=== PATIENT | male | born 1985 | race Caucasian/White ===

== ENCOUNTER 2017-05-21 20:49 | Emergency (ER) | payer SELFPAY ==
[~2017-05-21] VITALS: Ht 180.3 cm; Wt 81.6 kg
[2017-05-21 20:52] VITALS: BP 163/83
== END 2017-05-21 21:18 | disposition home or self-care (01) ==
LOC: ER 20:52
DX: J03.90 Acute tonsillitis, unspecified (principal); H66.92 Otitis media, unspecified, left ear; J45.909 Unspecified asthma, uncomplicated; F17.200 Nicotine dependence, unspecified, uncomplicated
CPT/HCPCS: A4606; Z7610

== ENCOUNTER 2018-06-08 05:32 | Emergency (ER) | payer MEDICAID, OTHER ==
[~2018-06-08] VITALS: Ht 180.3 cm; Wt 86.2 kg
[2018-06-08] VITALS (33 sets, daily range): BP systolic 89–160; BP diastolic 49–109
--- NOTE | 2018-06-08 05:32 | NUR ---
BIB RA TO BED 11 C/C OF ALOC. SECONDARY TO WITNESSED SEIZURE LIKE ACTIVITIY FROM HOME. PT AA/OX0, AROUSABLE TO PAIN STIMULI, RESTLESS, UNCOOPERATIVE WITH HEAVY ETOH SMELL. FATHER STATES, "HE DRANK ALCOHOL AND SMOKED MARIJUANA." SKIN PINK, WARM, DIAPHORETIC. PUPILS DIALATED AND REACTIVE. NO ORAL TRAUMA NOTED. POSITIVE URINARY INCONTINENCE. NO OBVIOUS HEAD TRAUMA NOTED. NO GAG REFLEX NOTED. BILATERAL LOWER EXTREMITY ABRASIONS NOTED. WILL CONTINUE TO MONITOR. PLACED PT ON COUPLES THERAPIST, CONTINUOUS PULSE OX, O2 15LPM VIA NRB. PLACED PT ON SEIZURE PRECAUTIONS WITH PADDED SIDE RAILS.
--- NOTE | 2018-06-08 05:44 | NUR ---
PT INTUBATED WITH ET-TUBE 7.5, 24CM AT THE LIP LINE, (+) COLOR CHANGE ON THE CO2 DETECTOR, BILATERAL EQUAL BREATH SOUNDS ON AUSCULTATION. WILL CONTINUE TO MONITOR PT CLSOELY.
--- NOTE | 2018-06-08 05:44 | NUR ---
PT REC'D ON NRB MASK 15LPM. PT SHOWED SIGNS OF TACHYCARDIA, TACHYPNEA, AND RESPIRATORY DISTRESS. PT ORALLY INTUBATED VIA ETT #7.5 SECURED AT 24CM @ THE LIP PER DR GILLIS REQUEST. CONFIRMED CO2 COLOR CHANGE AND BILATERAL BREATH SOUNDS POST INTUBATION. PT PLACED ON [facility] VENT VIA AC MODE ON SETTINGS CHARTED. BELT LOOP MACHINE OPERATOR CUFF PRESSURE NOTED. ALARMS ARE SET AND AUDIBLE. AMBU BAG BEDSIDE. VENT PLUGGED INTO RED OUTLET. WAITING ON CHEST X RAY RESULTS. WILL CONTINUE TO MONITOR Addendum: 06/08/18 at 0616 by KARAN MURRY RT Amended: Links added.
[2018-06-08] MEDS ORDERED: PROPOFOL 100 ML ONE (05:47)
--- NOTE | 2018-06-08 05:49 | NUR ---
RT PLACE PT ON VENT. VENT SETTINGS AC- 16, TV-500, FIO2-50%, PEEP-5.
[2018-06-08] MEDS ORDERED: IV NS 0.9% 1,000 ML BAG IV ONE (06:00)
[2018-06-08] MEDS ORDERED: LEVETIRACETAM (500MG) 1,000 MG in IV NS 0.9% 100 ML IV ONE (06:00)
[2018-06-08 06:14] LABS: BASOPHILS % (AUTO) 0.2 % (0.0-2.0); EOSINOPHILS % (AUTO) 0.4 % (0.0-6.0); HEMATOCRIT 55 % (39-51); HEMOGLOBIN 16.9 g/dL (13.5-17.5); LYMPHOCYTES # (AUTO) 8.6 /CMM (0.8-4.8); LYMPHOCYTES % (AUTO) 41.3 % (20.0-44.0); MEAN CORPUSCULAR HEMOGLOBIN 31 PG (26.0-33.0); MEAN CORPUSCULAR HGB CONC 31 g/dl (31.0-36.0); MEAN CORPUSCULAR VOLUME 101 fL (80-96); MONOCYTES % (AUTO) 4.7 % (2.0-12.0); NEUTROPHILS # (AUTO) 11.1 /CMM (1.8-8.9); NEUTROPHILS % (AUTO) 53.4 % (43.0-81.0); PLATELET COUNT (AUTO) 382 /CMM (150-450); RDW COEFFICIENT OF VARIATION 14.1 (11.5-15.0); RED BLOOD CELL COUNT(AUTO) 5.43 MIL/uL (4.5-6.0); WHITE BLOOD COUNT (AUTO) 20.9 K/uL (4.3-11.0)
--- NOTE | 2018-06-08 06:19 | NUR ---
PT TRANSPORTED TO RADIOLOGY FOR CT HEAD VIA ACLS PROTOCOL.
[2018-06-08 06:22] LABS: APPEARANCE,URINE SL CLOUDY (CLEAR); BILIRUBIN,URINE NEGATIVE (NEGATIVE); BLOOD, URINE 2+ Ery/uL (NEGATIVE); COLOR,URINE YELLOW (YELLOW); KETONES,URINE NEGATIVE (NEGATIVE); LEUKOCYTE ESTERASE ,URINE NEGATIVE (NEGATIVE); NITRITE, URINE NEGATIVE (NEGATIVE); PH,URINE 5.5 (5.0-8.0); PROTEIN,URINE 2+ mg/dl (NEGATIVE); UGLUCOSE NEGATIVE (NEGATIVE); UROBILINOGEN,URINE 0.2 EU/dL (0.2)
[2018-06-08 06:25] LABS: INR 0.94 (0.87-1.13)
[2018-06-08 06:28] LABS: BACTERIA,URINE Rare /HPF (None Seen); RBC,URINE 0-2 /HPF (0-2); SQUAMOUS EPITHELIAL CELL,UR Rare /HPF (None Seen); WBC,URINE 0-2 /HPF (0-3)
[2018-06-08] MEDS ORDERED: ROCURONIUM BROMIDE 50 MG/5 ML IV ONE (06:30)
[2018-06-08] MEDS ORDERED: ETOMIDATE 2 MG/ML VIAL IV ONE ×2 (06:30→10:41)
[2018-06-08 06:31] LABS: ALBUMIN 4.8 g/dL (3.4-5.0); BILIRUBIN,DIRECT 0.1 mg/dL (0.0-0.2); BILIRUBIN,TOTAL 0.3 mg/dL (0.2-1.0); CALCIUM, SERUM 9.6 mg/dL (8.5-10.1); CREATININE 1.4 mg/dL (0.6-1.3); POTASSIUM 3.9 mmol/L (3.5-5.1); TOTAL PROTEIN, SERUM 8.6 g/dL (6.4-8.2)
--- NOTE | 2018-06-08 06:31 | NUR ---
PT BACK FROM RADIOLOGY. PENDING CT HEAD RESULT.
[2018-06-08] MEDS ORDERED: LEVETIRACETAM (500MG) 500 MG/5 ML VIAL IV ONE (06:33)
--- NOTE | 2018-06-08 06:37 | NUR ---
ADVANCED ET TUBE [address] GILLIS REQUEST. TUBE SECURED AT 27CM @ THE LIP Addendum: 06/08/18 at 0650 by KARAN MURRY RT Amended: Links added.
[2018-06-08] MEDS ORDERED: NICARDIPINE IN DEXTROSE,ISO-OS 200 ML IV ONE (06:38)
--- NOTE | 2018-06-08 06:43 | NUR ---
NKECHI PATINO TALKING TO RADIOLOGIST REGARIDNG CT RESULT.
[2018-06-08] MEDS: PROPOFOL 100 ML IV PRN ×4 (06:46→10:31)
[2018-06-08 06:49] LABS: SALICYLATE 4.3 mg/dL (2.8-20.0)
--- NOTE | 2018-06-08 06:53 | NUR ---
DR. CACERES TALKING TO DR. EDMOND REGARDING CT RESULT.
[2018-06-08] MEDS ORDERED: PANTOPRAZOLE 40 MG VIAL IV ONE (07:00)
[2018-06-08] MEDS ORDERED: CEFTRIAXONE 1GM BAG (ER ONLY) 50 ML IV ONE (07:00)
[2018-06-08] MEDS ORDERED: NICARDIPINE IN NACL, ISO-OSM 20 MG/200 ML PIGGYBACK IV ONE (07:00)
[2018-06-08] MEDS ORDERED: IV LR 1000 ML 1,000 ML IV ONE (07:00)
[2018-06-08] MEDS ORDERED: CEFTRIAXONE 1 G VIAL ONE (07:08)
[2018-06-08] MEDS ORDERED: PANTOPRAZOLE 40 MG VIAL ONE (07:08)
--- NOTE | 2018-06-08 07:21 | NUR ---
RT PT RECEIVED ON [facility] VENT W 7.5 ETT SECURED @ 27' AT THE LIP. VENT SET W NOTED SETTINGS. ALARMS ARE ON AND AUDIBLE W AMBUBAG @ HOB AND PLUGGED INTO RED OUTLET. NO RESP DISTRESS NOTED. SMALL AMOUNT OF CLEAR THIN SECRETIONS OBSERVED. TEAM ASSEMBLER CUFF PRESSURE NOTED. WILL CONTINUE OT MONITOR. Addendum: 06/08/18 at 1141 by ABDIEL MEAD RT Amended: Links added.
[2018-06-08 07:22] LABS: ABG BASE EXCESS -16.9 mmol/L; ABG OXYGEN SATURATION 98.8 % (92.0-98.5); ABG PCO2 38.1 mmHg (35.0-45.0); ABG PH 7.111 (7.350-7.450); ABG PO2 279.4 mmHg (75.0-100.0); AaDO2 34.2 mmHg; COHb 0.7 % (0.5-1.5); MetHb 0.8 % (0.0-1.5); O2Hb 97.3 % (94.0-97.0); PEEP,BG 5 cm H2O; SITE, ABG Right Radial; VT, ABG 500 mL
[2018-06-08] MEDS ORDERED: LORAZEPAM INJ 2 MG/ML VIAL ONE (07:28)
[2018-06-08] MEDS ORDERED: LORAZEPAM INJ 2 MG/ML VIAL IV ONE (07:30)
--- NOTE | 2018-06-08 07:33 | NUR ---
ENDORSED TO ONCOMING SHIFT EDGAR CASTRO.
--- NOTE | 2018-06-08 07:48 | NUR ---
REPORT GIVEN TO FERMENTING CELLARS SUPERVISOREDGAR HANSEN
[2018-06-08] MEDS ORDERED: FENTANYL PF 100MCG/2ML AMPUL IV STA (08:00)
[2018-06-08] MEDS ORDERED: MIDAZOLAM HCL 2 MG/2ML VIAL IV ONE (08:00)
[2018-06-08] MEDS ORDERED: FENTANYL PF 100MCG/2ML AMPUL ONE (08:01)
[2018-06-08] MEDS ORDERED: MIDAZOLAM HCL 2 MG/2ML VIAL ONE (08:01)
[2018-06-08] MEDS ORDERED: IV NS 0.9% 1,000 ML IV PRN ×3 (08:44→09:00)
[2018-06-08] MEDS ORDERED: HYDROCODONE/APAP 5/325MG 1 EACH TABLET PO PRN (09:00)
[2018-06-08] MEDS ORDERED: MAG HYDROX/AL HYDROX/SIMETH 30 ML UDC PO PRN (09:00)
[2018-06-08] MEDS ORDERED: MAGNESIUM HYDROXIDE 30 ML UDC PO PRN (09:00)
[2018-06-08] MEDS ORDERED: ONDANSETRON HCL/PF 4 MG/2 ML VIAL IVP PRN (09:00)
[2018-06-08] MEDS ORDERED: Z GUARD REMEDY 2 OZ OINT TP PRN (09:00)
[2018-06-08] MEDS ORDERED: PANTOPRAZOLE 40 MG VIAL IV SCH (09:00)
--- NOTE | 2018-06-08 09:20 | NUR ---
RT NOTE RECEIVED PT INTUBATED VIA 7.5 ETT 27 CM AT LIP. TUBE SECURE, CUFF INFLATED. SETTINGS FOLLOW AC 16 550 40% +5. ALARMS SET PER PROTOCOL AND AUDIBLE. BILATERAL CHEST RISE NOTED. CLEAR BREATH SOUNDS HEARD UPON AUSCULTATION. VENT PLUGGED IN TO RED OUTLET. AMBU BAG AT BED SIDE. NO DISTRESS NOTED. Addendum: 06/08/18 at 0922 by KERWIN ARMSTRONG RT Amended: Links added.
[2018-06-08] MEDS ORDERED: FEE PK DOSING 1 MIN EA MC ONE (09:26)
[2018-06-08 09:28] LABS: OSMOLALITY,SERUM 302 mOS/kg (278-305); OSMOLALITY,URINE 466 mOS/kg (340-1090)
[2018-06-08] MEDS ORDERED: LEVETIRACETAM (500MG) 500 MG in IV NS 0.9% 100 ML IV SCH (09:30)
[2018-06-08] MEDS: VANCOMYCIN 1 GM in IV D5W 250 ML IV SCH ×2 (09:40→17:28)
--- NOTE | 2018-06-08 10:14 | NUR ---
received pt from ER, s/p drub overdose, sedated on Diprivan at 90mcg, SR, intubated on the vent, lungs clear, no edema, NPO, f/c good output, v/s stable, no pain, family at the bedside.
[2018-06-08 10:24] LABS: ABG BASE EXCESS -4.9 mmol/L; ABG OXYGEN SATURATION 98.3 % (92.0-98.5); ABG PCO2 41.4 mmHg (35.0-45.0); ABG PH 7.321 (7.350-7.450); ABG PO2 163.5 mmHg (75.0-100.0); AaDO2 74.1 mmHg; COHb 0.5 % (0.5-1.5); MetHb 0.8 % (0.0-1.5); PEEP,BG 5 cm H2O; SITE, ABG Right Radial; VENT MODE, BG AC 16 550 40% +5; VT, ABG 550 mL
[2018-06-08] MEDS ORDERED: Sodium Bicarbonate 150 MEQ in IV D5W 1,000 ML IV PRN (10:30)
[2018-06-08 10:41] LABS: BASOPHILS # (AUTO) 0.1 /CMM (0.0-0.2); BASOPHILS % (AUTO) 0.4 % (0.0-2.0); HEMATOCRIT 44 % (39-51); HEMOGLOBIN 14.4 g/dL (13.5-17.5); LYMPHOCYTES # (AUTO) 1.8 /CMM (0.8-4.8); LYMPHOCYTES % (AUTO) 7.5 % (20.0-44.0); MEAN CORPUSCULAR HEMOGLOBIN 31 PG (26.0-33.0); MEAN CORPUSCULAR HGB CONC 33 g/dl (31.0-36.0); MEAN CORPUSCULAR VOLUME 96 fL (80-96); MONOCYTES # (AUTO) 1.5 /CMM (0.1-1.30); MONOCYTES % (AUTO) 6.4 % (2.0-12.0); NEUTROPHILS # (AUTO) 20.1 /CMM (1.8-8.9); NEUTROPHILS % (AUTO) 85.7 % (43.0-81.0); PLATELET COUNT (AUTO) 270 /CMM (150-450); RDW COEFFICIENT OF VARIATION 13.7 (11.5-15.0); RED BLOOD CELL COUNT(AUTO) 4.61 MIL/uL (4.5-6.0); WHITE BLOOD COUNT (AUTO) 23.5 K/uL (4.3-11.0)
[2018-06-08] MEDS ORDERED: FEE EMEERGENCY 1 MIN EA MC ONE (10:41)
[2018-06-08 10:54] LABS: ALBUMIN 3.4 g/dL (3.4-5.0); BILIRUBIN,DIRECT 0.1 mg/dL (0.0-0.2); BILIRUBIN,TOTAL 0.5 mg/dL (0.2-1.0); PHOSPHORUS 2.5 mg/dL (2.5-4.9); TOTAL PROTEIN, SERUM 6.1 g/dL (6.4-8.2)
[2018-06-08] MEDS: PIPERACILLIN /TAZOBACTAM 3.375 G in IV D5W 50 ML IV SCH ×2 (11:24→17:00)
[2018-06-08 11:33] LABS: BAND % (MANUAL) 4 % (0.0-5.0); LYMPHOCYTES % (MANUAL) 8 % (16-48); MONOCYTES % (MANUAL) 3 % (0-11.0); MYELOCYTES % 2 % (0-0); NEUTROPHILS % (MANUAL) 83 (42-76)
--- NOTE | 2018-06-08 12:00 | NUR ---
pt is resting in the bed, sedated on diprivan at 50mcg, SR, receiving bicarb drip, v/s stable, no pain, pt turned and repositioned q2hrs.
[2018-06-08 12:17] LABS: APPEARANCE,URINE CLEAR (CLEAR); BILIRUBIN,URINE NEGATIVE (NEGATIVE); BLOOD, URINE 3+ Ery/uL (NEGATIVE); COLOR,URINE YELLOW (YELLOW); KETONES,URINE NEGATIVE (NEGATIVE); LEUKOCYTE ESTERASE ,URINE NEGATIVE (NEGATIVE); NITRITE, URINE NEGATIVE (NEGATIVE); PH,URINE 5.5 (5.0-8.0); PROTEIN,URINE 3+ mg/dl (NEGATIVE); UGLUCOSE 1+ mg/dL (NEGATIVE); UROBILINOGEN,URINE 0.2 EU/dL (0.2)
[2018-06-08 12:27] LABS: CREATININE, URINE 15.6 MG/DL (30.0-125.0); URINE TOTAL PROTEIN 151.9 mg/dL (0-11.9)
[2018-06-08 12:41] LABS: CALCIUM, SERUM 7.8 mg/dL (8.5-10.1); CREATININE 1.5 mg/dL (0.6-1.3); POTASSIUM 4.1 mmol/L (3.5-5.1)
[2018-06-08] MEDS ORDERED: DC PROPOFOL WHEN EXTUBATED XX PRN (12:55)
[2018-06-08 13:00] LABS: BACTERIA,URINE Few /HPF (None Seen); SQUAMOUS EPITHELIAL CELL,UR Rare /HPF (None Seen); WBC,URINE 0-2 /HPF (0-3)
--- NOTE | 2018-06-08 13:00 | NUR ---
pt got extubated per Dr Aguilar Alert, follows commands, recognizes his family members, on 3L 02 sat 100%, v/s stable, no pain.
[2018-06-08 13:07] LABS: EOSINOPHIL,URINE None Seen
--- NOTE | 2018-06-08 13:07 | NUR ---
RT NOTE PT EXTUBATED PER MD ORDER. PT AWAKE AND ALERT. NO DISTRESS NOTED. PLACED ON NC @ 3L WITH HUMIDIFIER. AMBU BAG AT BED SIDE. RN AT BED SIDE. FAMILY AT BED SIDE. Addendum: 06/08/18 at 1310 by KERWIN ARMSTRONG RT Amended: Links added.
[2018-06-08 13:36] LABS: CREATINE KINASE MB 4.8 ng/mL (0-3.6)
[2018-06-08 14:50] LABS: ABG BASE EXCESS -4.2 mmol/L; ABG OXYGEN SATURATION 96.9 % (92.0-98.5); ABG PCO2 29.8 mmHg (35.0-45.0); ABG PH 7.419 (7.350-7.450); ABG PO2 93.5 mmHg (75.0-100.0); AaDO2 20.5 mmHg; COHb 0.5 % (0.5-1.5); MetHb 0.6 % (0.0-1.5); O2Hb 95.8 % (94.0-97.0); SITE, ABG Right Radial; VENT MODE, BG ROOM AIR
--- NOTE | 2018-06-08 16:17 | NUR ---
pt is resting in the bed, a/o x4, SR, RA, urinate in urinal, v/s stable, no pain, pt turns and repositions by himself, family at the bedside.
--- NOTE | 2018-06-08 19:30 | NUR ---
Received patient resting in bed with at bedside.Respiration even and unlabored.VS stable.SR per monitor. IVF infusing to right hand site intact.Denies any discomfort .Call light at bedside with instructions.
--- NOTE | 2018-06-08 20:30 | NUR ---
2009 Patient disconnected heart monitor standing at bedside very agitated asking for his . Verbalized wants to go restroom.Asked patient if he can use the urinal at bedside.But instead get out of his room saying wants to go home now went to the fire exit door but ask not to open it instead went to employee elevator .Security called.hardboard supervisor,ED tried to stop him the more he get very agitated.Patient went back to his room on his own accord.Wants to sign AMA. 2014 Security personnel here.Patient here talking to patient but still wants out.Saline lock x 3 removed with needle intact.and ID removed. [id number] Patient signed out AMA FORM.Teaching Assistant notified.Paged control systems eng.Patient left ambulatory in stable condition accompanied by and security.No belongings.
--- NOTE | 2018-06-08 20:50 | NUR ---
ROOFING MACHINE OPERATOR,Padilla Horvath returned page and updated of patient status.
== END 2018-06-08 08:15 | disposition other institution (70) ==
LOC: ER 05:34 → UNDOADMIN 07:32 → ICU 07:32 → UNDODISIN 20:30
DX: R56.9 Unspecified convulsions (principal); R68.0 Hypothermia, not associated with low environmental temperature; G93.40 Encephalopathy, unspecified; E86.0 Dehydration; E87.2 Acidosis; F10.129 Alcohol abuse with intoxication, unspecified; J45.909 Unspecified asthma, uncomplicated; F17.200 Nicotine dependence, unspecified, uncomplicated
CPT/HCPCS: 31500; 31720; 36415; 36600 ×5; 51702; 70450; 71045 ×2; 80048 ×2; 80076 ×2; 80305; 80329; 81001 ×2; 82550 ×2; 82553; 82570; 82693; 82803; 83605 ×3; 83735; 83935 ×3; 84100; 84145; 84155; 84300; 85025 ×2; 85730; 86850; 87040 ×2; 87081; 89190; 93005 ×2; 94002; 96361; 96365; 96368; 96374; 96375; 99082; 99291; A4606; C9113 ×2; G0480 ×2; J0696; J1953 ×3; J2060; J2250; J2405; J2543 ×2; J3010; J3370; J3490 ×5; J7030 ×5; J7060 ×4; J7070 ×2; J7120 ×2; Z7610; 81000-TC

== ENCOUNTER 2019-05-23 16:15 | Emergency (ER) | payer BC, MEDICAID ==
[~2019-05-23] VITALS: Ht 182.9 cm; Wt 87.1 kg
[~2019-05-23 16:15] MED LIST: AMLO10TA7 PO; Calcium Acetate PO; OXCA150T13 PO; SEVE800T7 PO
[2019-05-23 16:56] VITALS: BP 129/81
--- NOTE | 2019-05-23 17:45 | NUR ---
ER PHLEB AT BEDSIDE FOR BLOOD DRAW.
[2019-05-23 17:47] LABS: BASOPHILS # (AUTO) 0.1 /CMM (0.0-0.2); BASOPHILS % (AUTO) 0.8 % (0.0-2.0); EOSINOPHILS % (AUTO) 0.4 % (0.0-6.0); HEMATOCRIT 43 % (39-51); HEMOGLOBIN 14.7 g/dL (13.5-17.5); LYMPHOCYTES # (AUTO) 2.5 /CMM (0.8-4.8); LYMPHOCYTES % (AUTO) 24.9 % (20.0-44.0); MEAN CORPUSCULAR HGB CONC 35 g/dl (31.0-36.0); MEAN CORPUSCULAR VOLUME 94 fL (80-96); MONOCYTES # (AUTO) 0.7 /CMM (0.1-1.30); MONOCYTES % (AUTO) 7.3 % (2.0-12.0); NEUTROPHILS # (AUTO) 6.7 /CMM (1.8-8.9); NEUTROPHILS % (AUTO) 66.6 % (43.0-81.0); PLATELET COUNT (AUTO) 326 /CMM (150-450); RED BLOOD CELL COUNT(AUTO) 4.51 MIL/uL (4.5-6.0)
[2019-05-23 17:54] LABS: CALCIUM, SERUM 9.1 mg/dL (8.5-10.1); POTASSIUM 4.3 mmol/L (3.5-5.1)
[2019-05-23] MEDS ORDERED: LORAZEPAM 1 MG TABLET ONE (17:58)
[2019-05-23 18:00] LABS: ALBUMIN 4.1 g/dL (3.4-5.0); BILIRUBIN,DIRECT 0.1 mg/dL (0.0-0.2); BILIRUBIN,TOTAL 0.3 mg/dL (0.2-1.0); TOTAL PROTEIN, SERUM 7.3 g/dL (6.4-8.2)
[2019-05-23] MEDS ORDERED: LORAZEPAM 1 MG TABLET PO ONE (18:00)
== END 2019-05-23 18:23 | disposition home or self-care (01) ==
LOC: ER 16:20
DX: F17.200 Nicotine dependence, unspecified, uncomplicated (principal); R61 Generalized hyperhidrosis; R11.0 Nausea; J45.909 Unspecified asthma, uncomplicated; F41.9 Anxiety disorder, unspecified; F32.9 Major depressive disorder, single episode, unspecified; Z79.899 Other long term (current) drug therapy
CPT/HCPCS: 36415; 80048-TC; 80076-TC; 83690-TC; 85025-TC

== ENCOUNTER 2019-06-21 14:13 | Emergency (ER) | payer BC | END 2019-06-21 16:07 | disposition home or self-care (01) | DX: F41.9 Anxiety disorder, unspecified (principal); R56.9 Unspecified convulsions; I25.2 Old myocardial infarction; J45.909 Unspecified asthma, uncomplicated; F10.10 Alcohol abuse, uncomplicated; F17.200 Nicotine dependence, unspecified, uncomplicated; Y90.9 Presence of alcohol in blood, level not specified ==

== ENCOUNTER 2019-12-19 13:24 | Emergency (ER) | payer BC, MEDICAID ==
[~2019-12-19] VITALS: Ht 182.9 cm; Wt 82.1 kg
--- NOTE | 2019-12-19 13:41 | NUR ---
"Anxious/chest tight been going on for years but worse last 2wks". DENIES PAIN, SOB, DIZZINESS, WEAKNESS, N/V. NO ACUTE DISTRESS NOTED. HYPERTENSIVE, AMBULATORY, RR EVEN AND UNLABORED ON RA. FAMILY AT BEDSIDE, ON MONITOR, READY FOR EVAL
--- NOTE | 2019-12-19 13:48 | NUR ---
SHELLIE IZAGUIRRE AT BEDSIDE FOR EVAL.
[2019-12-19] MEDS ORDERED: LORAZEPAM 0.5 MG TABLET ONE (13:59)
[2019-12-19] MEDS ORDERED: LORAZEPAM 1 MG TABLET PO ONE (14:00)
[2019-12-19 14:03] LABS: BASOPHILS # (AUTO) 0.1 /CMM (0.0-0.2); EOSINOPHILS % (AUTO) 0.3 % (0.0-6.0); HEMATOCRIT 46 % (39-51); HEMOGLOBIN 15.1 g/dL (13.5-17.5); LYMPHOCYTES # (AUTO) 2.5 /CMM (0.8-4.8); LYMPHOCYTES % (AUTO) 17.9 % (20.0-44.0); MEAN CORPUSCULAR HGB CONC 33 g/dl (31.0-36.0); MEAN CORPUSCULAR VOLUME 94 fL (80-96); MONOCYTES # (AUTO) 0.6 /CMM (0.1-1.30); MONOCYTES % (AUTO) 4.6 % (2.0-12.0); NEUTROPHILS # (AUTO) 10.4 /CMM (1.8-8.9); NEUTROPHILS % (AUTO) 76.2 % (43.0-81.0); PLATELET COUNT (AUTO) 312 /CMM (150-450); RED BLOOD CELL COUNT(AUTO) 4.88 MIL/uL (4.5-6.0); WHITE BLOOD COUNT (AUTO) 13.7 K/uL (4.3-11.0)
[2019-12-19 14:21] LABS: CALCIUM, SERUM 9.8 mg/dL (8.5-10.1); CARBON DIOXIDE 25 mmol/L (21-32); CHLORIDE 105 mmol/L (98-107); GLUCOSE 95 mg/dL (74-106); POTASSIUM 4.4 mmol/L (3.5-5.1); SODIUM SERUM 141 mmol/L (136-145); UREA NITROGEN, BLOOD 12 mg/dL (7-18)
--- NOTE | 2019-12-19 15:14 | NUR ---
ASSUMED CARE OF PT FOR DISCHARGE PURPOSES ONLY. PT APPEARS CALM AND RELAXED. VSS. Patient discharged to home in stable condition. Written and verbal after care instructions given. Patient verbalizes understanding of instruction. PT TO F/U WITH PMD.
[2019-12-19 15:15] VITALS: BP 137/89
== END 2019-12-19 15:16 | disposition home or self-care (01) ==
LOC: ER 13:31
DX: F41.9 Anxiety disorder, unspecified (principal); F12.90 Cannabis use, unspecified, uncomplicated; F17.210 Nicotine dependence, cigarettes, uncomplicated; J45.909 Unspecified asthma, uncomplicated; I25.2 Old myocardial infarction; Z79.899 Other long term (current) drug therapy
CPT/HCPCS: 36415; 71045-TC; 80048-TC; 84484-TC; 85025-TC

== ENCOUNTER 2019-12-27 11:08 | Emergency (ER) | payer MEDICAID ==
[~2019-12-27] VITALS: Ht 182.9 cm; Wt 82.6 kg
[2019-12-27 12:14] VITALS: BP 135/85
--- NOTE | 2019-12-27 12:27 | NUR ---
Patient discharged to home in stable condition. Written and verbal after care instructions given. Patient verbalizes understanding of instruction.
== END 2019-12-27 12:28 | disposition home or self-care (01) ==
LOC: ER 11:08
DX: L03.011 Cellulitis of right finger (principal); J45.909 Unspecified asthma, uncomplicated; F41.9 Anxiety disorder, unspecified; F17.200 Nicotine dependence, unspecified, uncomplicated; Z79.899 Other long term (current) drug therapy

== ENCOUNTER 2020-08-31 14:52 | Emergency (ER) | payer MEDICAID ==
[~2020-08-31] VITALS: Ht 182.9 cm; Wt 81.6 kg
[~2020-08-31 14:52] MED LIST changes: +AMLO-213 PO; -AMLO10TA7 PO
[2020-08-31 15:01] VITALS: BP 168/100
--- NOTE | 2020-08-31 15:10 | NUR ---
c/o right rib pain s/p fall 2 days agom, 8/10 pain scale. Patient a/ox4, breathing even and unlabored, nos ob noted, needs attended, ambulatory with steady gait.
--- NOTE | 2020-08-31 16:19 | NUR ---
Patient discharged to home in stable condition. Written and verbal after care instructions given. Patient verbalizes understanding of instruction.
== END 2020-08-31 16:20 | disposition home or self-care (01) ==
LOC: ER 14:58
DX: S20.211A Contusion of right front wall of thorax, initial encounter (principal); J45.909 Unspecified asthma, uncomplicated; F41.9 Anxiety disorder, unspecified; I10 Essential (primary) hypertension; F17.200 Nicotine dependence, unspecified, uncomplicated; Z79.899 Other long term (current) drug therapy; W18.09XA Striking against other object with subsequent fall, initial encounter; Y93.89 Activity, other specified; Y92.89 Other specified places as the place of occurrence of the external cause; Y99.8 Other external cause status
CPT/HCPCS: 71100-TC

== ENCOUNTER 2020-09-05 14:24 | Emergency (ER) | payer MEDICAID ==
[~2020-09-05] VITALS: Ht 182.9 cm; Wt 81.6 kg
[2020-09-05 14:33] VITALS: BP 147/94
--- NOTE | 2020-09-05 16:35 | NUR ---
Patient discharged to home in stable condition. Written and verbal after care instructions given. Patient verbalizes understanding of instruction.
== END 2020-09-05 16:35 | disposition home or self-care (01) ==
LOC: ER 14:28
DX: J02.0 Streptococcal pharyngitis (principal); F41.9 Anxiety disorder, unspecified; J45.909 Unspecified asthma, uncomplicated; Z79.899 Other long term (current) drug therapy
CPT/HCPCS: 86403-TC; 87070-TC

== ENCOUNTER 2021-10-25 23:50 | Emergency (ER) | payer MEDICAID ==
--- NOTE | 2021-10-26 00:45 | NUR ---
CALLED FOR TRIAGE. NO ANSWER
--- NOTE | 2021-10-26 01:05 | NUR ---
CALLED FOR TRIAGE. NO ANSWER
[2021-10-27] MEDS ORDERED: OXYC-128 PO (15:19)
== END 2021-10-26 01:06 | disposition left against medical advice (07) ==
LOC: ER 10-26 00:03
DX: Z53.21 Procedure and treatment not carried out due to patient leaving prior to being seen by health care provider (principal); J45.909 Unspecified asthma, uncomplicated; F41.9 Anxiety disorder, unspecified; Z79.899 Other long term (current) drug therapy

== ENCOUNTER 2021-10-27 14:05 | Emergency (ER) | payer MEDICAID ==
[~2021-10-27] VITALS: Ht 182.9 cm; Wt 81.6 kg
--- NOTE | 2021-10-27 14:25 | NUR ---
BIBS C/O LEFT ANKLE PAIN 07/02 AND SWELLING S/P JUMPING WHILE AT [facility] 10/23/21. [facility] PEDAL PULSES PRESENT. WILL CONTINUE TO MONITOR THE PATIENT.
--- NOTE | 2021-10-27 14:26 | NUR ---
LAW PATINO AT PT'S BEDSIDE
[2021-10-27 14:36] VITALS: BP 150/94
[2021-10-27] MEDS ORDERED: OXYC-128 PO (15:19)
--- NOTE | 2021-10-27 15:31 | NUR ---
Patient discharged to home in stable condition. Written and verbal after care instructions given. Patient verbalizes understanding of instruction.
== END 2021-10-27 15:32 | disposition home or self-care (01) ==
LOC: ER 14:14
DX: S92.145A Nondisplaced dome fracture of left talus, initial encounter for closed fracture (principal); M25.472 Effusion, left ankle; J45.909 Unspecified asthma, uncomplicated; F41.9 Anxiety disorder, unspecified; Z79.891 Long term (current) use of opiate analgesic; Z79.811 Long term (current) use of aromatase inhibitors; Z79.83 Long term (current) use of bisphosphonates; Z79.818 Long term (current) use of other agents affecting estrogen receptors and estrogen levels; X58.XXXA Exposure to other specified factors, initial encounter; Y93.89 Activity, other specified; Y92.830 Public park as the place of occurrence of the external cause; Y99.8 Other external cause status
CPT/HCPCS: 73610-TC

== ENCOUNTER 2022-11-27 14:04 | Emergency (ER) | payer MEDICAID ==
[~2022-11-27] VITALS: Ht 182.9 cm; Wt 77.1 kg
[~2022-11-27 14:04] MED LIST changes: +OXYC-128 PO
--- NOTE | 2022-11-27 14:20 | NUR ---
LICOFRIENAbimbola "I fell down stairs 1H ago C/O Right foot pain". AMBULATORY WITH CRUTCH, PLACED IN BED, BOOT IMOBILIZER NOTED AT R LOWER LEG.
[2022-11-27] MEDS ORDERED: ACETAMINOPHEN ES 500 MG TABLET ONE (14:50)
[2022-11-27] MEDS ORDERED: ACETAMINOPHEN ES 500 MG TABLET PO ONE (15:00)
--- NOTE | 2022-11-27 15:22 | NUR ---
[facility] AT BEDSIDE
[2022-11-27] MEDS ORDERED: OXYC-128 PO (16:31)
[2022-11-27 16:38] VITALS: BP 117/75
--- NOTE | 2022-11-27 16:39 | NUR ---
Patient discharged to home in stable condition. Ambulated with crutches. Written and verbal after care instructions given. Patient verbalizes understanding of instruction.
== END 2022-11-27 16:39 | disposition home or self-care (01) ==
LOC: ER 14:17
DX: S92.351A Displaced fracture of fifth metatarsal bone, right foot, initial encounter for closed fracture (principal); J45.909 Unspecified asthma, uncomplicated; F41.9 Anxiety disorder, unspecified; F17.200 Nicotine dependence, unspecified, uncomplicated; Z79.899 Other long term (current) drug therapy; W10.9XXA Fall (on) (from) unspecified stairs and steps, initial encounter; Y93.89 Activity, other specified; Y92.89 Other specified places as the place of occurrence of the external cause; Y99.8 Other external cause status
CPT/HCPCS: 73610-TC; 73630-TC